=== PATIENT | female | born 1960 | race Caucasian/White ===

== ENCOUNTER → 2017-02-09 | Outpatient (CLI) | payer MEDICARE, OTHER ==
--- NOTE | 2017-02-09 16:20 | KCIC ---
MRI Cervical Spine Without Contrast History: Neck pain, spondylosis, headaches, bilateral upper extremity radiculopathy Technique: Multiplanar, multi sequential noncontrast MR imaging was performed of the cervical spine. Comparison: April 04, 2012 Findings: There is some motion degradation. There is more advanced degenerative disc disease C5-C6 and to lesser degree at C6-7 and minimally at C4-5 and C3-4, findings present previously although slight interval progression of degenerative disc disease at C3-4 in the interval. Trace C4-5 endplate edema is likely reactive/degenerative in etiology. Cervical cord caliber is within normal limits without focal signal abnormality. There is no significant abnormality of the cervical medullary junction. Cervical vertebral body stature is unchanged, some scattered small Schmorl's nodes. C2-C3: Spinal canal and neural foramina are adequate. C3-C4: Spinal canal and neural foramina are adequate. C4-C5: There is very minimal disc osteophyte complex. Spinal canal and neural foramina are adequate. C5-C6: There is minimal disc osteophyte complex. Central canal is minimally narrowed to 9 to 10 mm. There is minimal uncovertebral degenerative change. There is very minimal narrowing of the proximal right neural foramen, left neural foramen adequate. C6-C7: There is minimal disc osteophyte complex. Central canal is minimally narrowed to 9 to 10 mm. There is mild left uncovertebral degenerative change. There is very minimal narrowing of the left neural foramen, right neural foramen adequate. C7-T1: Spinal canal is adequate. There is facet degenerative change. There is likely minimal posterior narrowing of the left neural foramen, right neural foramen overall adequate. Impression: 1. There is multilevel cervical degenerative disc disease greatest at C5-C6 and C6-7. There is multilevel mild spondylosis. 2. There is mild spinal stenosis C5-6 and C6-7. Electronically signed by: Yomi Nowak MD (02/09/2017 4:17 PM) [id number]
== END | disposition home or self-care (01) ==
LOC: KCIC MRI 15:16
PROVIDERS: ATTEND Internal Medicine
DX: M47.892 Other spondylosis, cervical region (principal); M50.30 Other cervical disc degeneration, unspecified cervical region; M48.02 Spinal stenosis, cervical region
CPT/HCPCS: 72141

== ENCOUNTER → 2017-04-11 | Outpatient (CLI) | payer MEDICARE, OTHER | END | disposition home or self-care (01) | LOC: KCIC DEXA 10:15 | DX: Z13.820 Encounter for screening for osteoporosis (principal); E28.39 Other primary ovarian failure; M85.88 Other specified disorders of bone density and structure, other site; Z78.0 Asymptomatic menopausal state | CPT/HCPCS: 77080 ==

== ENCOUNTER → 2018-01-23 | Outpatient (CLI) | payer MEDICARE, OTHER ==
--- NOTE | 2018-01-23 14:13 | KCIC ---
CT of the abdomen and pelvis without contrast. 01/23/2018 9:30 AM Indication: Right upper quadrant pain, right flank pain. 3 weeks of loose stools. Comparison Study: None available. There is a 2 mm noncalcified lung nodule in the left lung base.. Technique: Multidetector CT imaging of the abdomen pelvis is obtained without administration of contrast. Findings: The visualized bilateral lung bases are clear. Cholecystectomy noted. Multiple hepatic cysts are noted. In the superior medial right liver hepatic cyst measures up to 4.3 cm in diameter. The inferior right liver the larger cyst measures up to 4 cm in diameter. The spleen is unremarkable. The adrenal glands are unremarkable. There is no evidence of hydronephrosis, nephrolithiasis, or acute obstructive uropathy. The kidneys have an unremarkable noncontrast enhanced appearance. Pancreas is unremarkable noncontrast enhanced appearance. There is no bowel obstruction. Lack of IV and enteric contrast significantly limits evaluation of the bowel. Descending sigmoid colonic diverticulosis is noted. The appendix is unremarkable. There is possible minimal pericolonic fat stranding involving the sigmoid colon (axial image 110, coronal image 37, sagittal image 48). Very mild diverticulitis could produce this appearance. No pneumoperitoneum is identified. No significant free fluid is seen in the abdomen or pelvis. No evidence of acute osseous abnormality is identified. IMPRESSION: 1. Minimal pericolonic stranding involving the sigmoid colon. Descending and sigmoid colonic diverticulosis noted. Finding is nonspecific. Very mild diverticulitis not excluded. 2. No evidence of nephrolithiasis or acute obstructive uropathy 3. Hepatic cysts CT DOSING PQRS STATEMENT: One or more of the following individualized dose reduction techniques were utilized for this examination: 1. Automated exposure control 2. Adjustment of the mA and/or kV according to patient size 3. Use of iterative reconstruction technique Electronically signed by: Vince Pierce MD (01/23/2018 2:09 PM) [id number]
== END | disposition home or self-care (01) ==
LOC: KCIC CT 09:20
PROVIDERS: ATTEND Internal Medicine
DX: K76.89 Other specified diseases of liver (principal); K57.30 Diverticulosis of large intestine without perforation or abscess without bleeding; R91.1 Solitary pulmonary nodule; Z90.49 Acquired absence of other specified parts of digestive tract
CPT/HCPCS: 74176

== ENCOUNTER → 2018-02-16 | Outpatient (CLI) | payer MEDICARE, OTHER ==
--- NOTE | 2018-02-16 10:37 | KCIC ---
EXAM: CT Chest without IV contrast CLINICAL HISTORY: Lung nodule follow-up COMPARISON: None. TECHNIQUE: CT of the chest without intravenous contrast. Axial, coronal and sagittal reformatted images were generated. ---PQRS compliance statement - One or more of the following individualized dose reduction techniques were utilized for this study: 1. Automated exposure control 2. Adjustment of the mA and/or kV according to patient size 3. Use of iterative reconstruction technique--- FINDINGS: Lack of intravenous contrast limits evaluation of solid organs, vasculature, and lymph nodes. Chest: The heart is not enlarged. No pericardial effusion. Within the constraints of noncontrast exam, no thoracic lymphadenopathy. No pleural effusion or pneumothorax. Azygos lobe is incidentally seen. A 3 mm lung nodule is seen along the left major fissure (image 92). Otherwise, no definite suspicious lung nodule or mass is seen. Minimal dependent opacities in the Visualized Upper abdomen: Multiple hepatic hypodense cystic lesions are seen. Several other smaller hepatic hypodense lesions are too small to accurately characterize but favored to be cystic. Bones: Osseous structures are grossly unremarkable. IMPRESSION: 3 mm lung nodule is seen along the left major fissure. Otherwise no suspicious lung nodule or mass is seen. Electronically signed by: Naveen Mcneal MD (02/16/2018 10:33 AM) [facility]
== END | disposition home or self-care (01) ==
LOC: KCIC CT 08:15
PROVIDERS: ATTEND Internal Medicine Pulmonary Disease
DX: R91.1 Solitary pulmonary nodule (principal)
CPT/HCPCS: 71250

== ENCOUNTER → 2018-06-27 | Outpatient (CLI) | payer MEDICARE, OTHER ==
--- NOTE | 2018-06-27 15:57 | KCIC ---
Thyroid ultrasound, 06/27/2018: HISTORY: Follow-up thyroid nodules The right lobe of the gland measures 4.7 x 1.5 x 1.6 cm while the left lobe of the gland measures 4.7 by by 1.7 x 1.7. The gland is heterogeneous with multiple bilateral nodules as noted on the previous study of 04/01/2016. These represent a combination of tiny nonspecific hypoechoic nodules, colloid cysts and solid appearing nodules on the left. The largest nodules lie on the left. There is a predominantly cystic 9 mm lesion in the upper pole of the left lobe which is unchanged. There is a heterogeneous solid nodule in the posterior aspect of the midportion of the left lobe of the gland which measures approximately 1 cm in AP dimension and width on the transverse images, similar to that seen on the previous study. There is inferior extension of this nodule seen on today's longitudinal images which was less clearly appreciated on the previous study, due to technical differences. This nodule now measures 2.3 cm in craniocaudad extent. Its margins are smooth. No highly suspicious features are seen. Reportedly there have been previous benign thyroid biopsies. IMPRESSION: 1. Multinodular thyroid gland. 2. Measurement of the dominant solid left thyroid nodule has increased in one plane, however, that is likely due to technical factors. Further sonographic surveillance is suggested. Electronically signed by: Louis Edwards MD (06/27/2018 3:54 PM) [facility]
--- NOTE | 2018-06-27 16:48 | KCIC ---
Bilateral diagnostic digital mammograms with 3-D tomosynthesis: Reason for examination: Right breast lump. History of breast implant removal 4 years ago. Comparison is made to previous studies dated 07/06/2016 and 04/26/2011. Bilateral mammograms in CC and oblique projections were obtained with 2-D imaging and 3-D tomosynthesis imaging on a Siemens Inspiration unit and reviewed on the workstation. Interpretation was made with the benefit of CAD. The skin and nipples show no abnormalities. No abnormal axillary lymph nodes are seen. The breast parenchyma shows scattered fatty and fibroglandular density. (Breast density: Category B.) There continues to be some asymmetric density in the retroareolar position of the left breast which is stable. There are no new dominant masses, suspicious calcifications or architectural distortion. Impression: No evidence of malignancy. Ultrasound to follow. BI-RAD Category 0: Incomplete. Needs additional imaging evaluation. Right breast ultrasound: Ultrasound examination was performed in the area of clinical concern in the lower inner quadrant and the axilla. No cystic or solid nodules are seen. No abnormal appearing lymph nodes are seen in the axilla. IMPRESSION: No abnormality seen in the right breast. Recommend routine mammographic follow-up. BI-RADS Category 2: Benign. "Our facility is accredited by the [employer] Mammography Program." This patient's information has been entered into a reminder system for the patient to be notified with the results of her examination and a target date for the next mammogram. Electronically signed by: Capri Chilel MD (06/27/2018 4:46 PM) [id number]
== END | disposition home or self-care (01) ==
LOC: KCIC MAMMO 12:40
PROVIDERS: ATTEND Internal Medicine
DX: E04.2 Nontoxic multinodular goiter (principal); N63.10 Unspecified lump in the right breast, unspecified quadrant
CPT/HCPCS: 76536; 76641; 77066; G0279; 77062